=== PATIENT | female | born 1935 | race Caucasian/White ===

== ENCOUNTER 2017-10-08 08:12 | Inpatient (IN) | payer OTHER, BC ==
[~2017-10-08] VITALS: Ht 162.6 cm; Wt 73.1 kg
[2017-10-08 14:22] VITALS: BP 147/70
[2017-10-08] MEDS ORDERED: ASCORBIC ACID500 MG PO (15:01)
[2017-10-08] MEDS ORDERED: CALCIUM 500 +1 EAC4 PO (15:02)
[2017-10-08] MEDS ORDERED: VITAMIN D31000 UNI2 PO (15:03)
[2017-10-08] MEDS ORDERED: LEVOTHYROXINE100 MCG PO (15:05)
[2017-10-08] MEDS ORDERED: CENTRUM SILVER1 EAC3 PO (15:06)
[2017-10-08] MEDS ORDERED: COENZYME Q10100 M2 PO (15:06)
[2017-10-08] MEDS ORDERED: TYLENOL REGULA325 MG PO (15:07)
[2017-10-08] MEDS ORDERED: ASPIRIN325 MG PO (15:08)
[2017-10-08] MEDS ORDERED: LIPITOR40 MG PO (15:09)
[2017-10-08] MEDS ORDERED: PEPCID40 MG PO (15:12)
[2017-10-08] MEDS ORDERED: HEPARIN SO5000 UNIT4 SC (15:13)
[2017-10-08] MEDS ORDERED: ZESTRIL2.5 MG PO (15:15)
[2017-10-08 23:04] VITALS: BP 138/67
[2017-10-09 05:20] VITALS: BP 133/60
[2017-10-09 09:16] LABS: HEMATOCRIT 38.6 % (36.0-46.0); HEMOGLOBIN 12.8 G/DL (11.9-15.5); MCH 30.4 PG (29.0-34.0); MCHC 33.2 G/DL (30.0-36.0); MCV 91.7 FL (83-99); PLATELET COUNT 252 K/uL (156-360); RBC DIS.WIDTH-CV 12.8 % (11.8-14.6); RBC DIS.WIDTH-SD 42.2 % (39-53); RED BLOOD COUNT 4.21 M/uL (3.80-5.20); WHITE BLOOD COUNT 6.1 K/uL (4.1-10.2)
[2017-10-09 09:30] LABS: ALBUMIN 3.8 G/DL (3.2-4.8); ALKALINE PHOSPHATASE 85 IU/L (3-129); ALT (GPT) 37 IU/L (3-49); AST (GOT) 62 IU/L (2-34); CHLORIDE 103 MEQ/L (99-109); CREATININE 0.8 MG/DL (0.6-1.3); GFR ESTIMATE (CALCULATED) > 59 mL/min/; GLUCOSE 143 mg/dL (70-99); POTASSIUM 3.3 MEQ/L (3.7-5.4); SODIUM 140 MEQ/L (136-147); TOTAL BILIRUBIN 0.5 MG/DL (0.0-1.0); TOTAL PROTEIN 6.9 G/DL (6.4-8.3); UREA NITROGEN (BUN) 14 mg/dL (9-23)
[2017-10-09 15:42] VITALS: BP 148/65
[2017-10-10 05:53] VITALS: BP 137/63
[2017-10-10 14:50] VITALS: BP 139/63
[2017-10-11 06:04] VITALS: BP 134/81
[2017-10-11 06:42] LABS: CHLORIDE 103 MEQ/L (99-109); CREATININE 0.7 MG/DL (0.6-1.3); GFR ESTIMATE (CALCULATED) > 59 mL/min/; SODIUM 138 MEQ/L (136-147); UREA NITROGEN (BUN) 11 mg/dL (9-23)
[2017-10-11 06:43] LABS: GLUCOSE 106 mg/dL (70-99); POTASSIUM 4.1 MEQ/L (3.7-5.4)
[2017-10-11] MEDS ORDERED: LIPITOR40 MG PO (12:16)
[2017-10-11] MEDS ORDERED: ZESTRIL2.5 MG PO (12:16)
[2017-10-11] MEDS ORDERED: LEVOTHYROXINE100 MCG PO (12:16)
[2017-10-11] MEDS ORDERED: ASPIRIN325 MG PO (12:16)
[2017-10-11] MEDS ORDERED: PEPCID40 MG PO (12:16)
[2017-10-11 15:02] VITALS: BP 123/60
[2017-10-12 06:02] VITALS: BP 117/57
== END 2017-10-12 13:12 | DRG 66 ==
LOC: 3WEST 08:12
PROVIDERS: Physical Medicine & Rehabilitation Pain Medicine
PROC: F07M7ZZ Manual Therapy Techniques Treatment of Musculoskeletal System - Whole Body (ICD-10-PCS; principal; 2017-10-08)
DX: I63.512 Cerebral infarction due to unspecified occlusion or stenosis of left middle cerebral artery (principal); R29.810 Facial weakness; I69.320 Aphasia following cerebral infarction; I10 Essential (primary) hypertension; E03.9 Hypothyroidism, unspecified; E87.6 Hypokalemia; Z90.710 Acquired absence of both cervix and uterus; Z88.2 Allergy status to sulfonamides; Z82.3 Family history of stroke
CPT/HCPCS: 80048; 80053; 85027; 92507 GN; J1650